=== PATIENT | male | born 1990 | race Caucasian/White ===

== ENCOUNTER 2020-06-24 17:19 | Observation (INO) | payer OTHER ==
[~2020-06-24] VITALS: Ht 172.7 cm; Wt 85.8 kg
[~2020-06-24 17:19] MED LIST: LISI2.5T PO; MONT10TA6 PO
[2020-06-24] MEDS ORDERED: SODIUM CHLORIDE FLUSH 10ML SYR IVF ONE (18:00)
[2020-06-24] MEDS ORDERED: ONDANSETRON 2MG/ML, 2ML IVPush ONE ×2 (18:00→22:30)
[2020-06-24] MEDS ORDERED: HYDROmorphone 2 MG/ML, 1ML IVPush PRN (18:00)
[2020-06-24] MEDS ORDERED: SODIUM CHLORIDE 0.9% 1,000ML IVBOLUS ONE ×3 (18:00→22:30)
[2020-06-24] MEDS ORDERED: HYDROmorphone 1 MG/ML, 1ML INJ ONE (18:17)
[2020-06-24] MEDS ORDERED: ONDANSETRON 2MG/ML, 2ML ONE ×2 (18:18→22:25)
[2020-06-24 18:19] LABS: MEAN CORPUSCULAR HEMOGLOBIN 32.2 pg (27.5-34.5); MEAN CORPUSCULAR HGB CONC 34.6 g/dL (33.2-36.2); MEAN PLATELET VOLUME 7.9 fL (7.4-10.4); PLATELET COUNT 293 x10^3/uL (130-400); RED BLOOD COUNT 6.06 x10^6/uL (4.38-5.82); RED CELL DISTRIBUTION WIDTH 12.6 % (9.4-14.8)
[2020-06-24 18:32] LABS: ALANINE AMINOTRANSFERASE 32 U/L (12-78); ALBUMIN 5.4 g/dL (3.4-5.0); ANION GAP 13 mmol/L (5-15); CALCIUM 10.2 mg/dL (8.5-10.1); CHLORIDE 102 mmol/L (98-107); CREATININE 1.39 mg/dL (0.7-1.3)
[2020-06-24 18:34] LABS: ALKALINE PHOSPHATASE 97 U/L (45-117); BILIRUBIN,TOTAL 1.9 mg/dL (0.2-1.0); TOTAL PROTEIN 9.1 g/dL (6.4-8.2)
--- NOTE | 2020-06-24 18:46 | NUR ---
IV PLACED, PT MEDICATED PER ERP ORDER FOR PAIN AND N/V. PT STATES DECREASE IN PAIN FROM 04/09 TO 3. PT LAST DRANK PEDIALYTE ALL DAY WITH LAST DRINK ON ARRIVAL TO ED. PT REPORTS N/V EVERY 15-60 MINUTES SINCE EARLY AM, VOMITING BILE THIS AFTERNOON. PT ALSO STATES TWO LOOSE STOOLS. REPORT TO DOUGLAS ANAYA, TRANSFER OF CARE AT THIS TIME. Addendum: 06/24/20 at 1910 by IRVING PINK SEPSIS SHEET STARTED, TWO CRITERIA IN SECTION B ONLY AT THIS TIME.
--- NOTE | 2020-06-24 18:48 | NUR ---
bedside report from Mariposa ANAYA, pt care transferred at this time.
[2020-06-24 18:52] LABS: MD YES
[2020-06-24 18:53] LABS: BANDS%(MANUAL) 1 % (0-7); LYMPH#(MANUAL) 0.89 x10^3/uL (1-3.4); LYMPHS% (MANUAL) 3 % (22-44); METAMYELOCYTES% (MANUAL) 1 % (0-1); MONOS#(MANUAL) 0.89 x10^3/uL (0.3-2.7); MONOS% (MANUAL) 3 % (2-9); SEG#(MANUAL) 27.32 x10^3/uL (1.8-6.8); SEGS% (MANUAL) 92 % (42-75)
[2020-06-24 18:54] LABS: <PLATELET ESTIMATE> ADEQUATE; <PLT MORPHOLOGY> NORMAL PLT MORPH; <RBC MORPHOLOGY> NORMAL
--- NOTE | 2020-06-24 19:00 | NUR ---
HYPERTENSION, OTHER VS, AND PAIN LEVEL REPORTED TO ABBY CONTRERAS.
[2020-06-24] MEDS ORDERED: ENALAPRILAT 1.25 MG/ML, 1ML ONE (19:14)
--- NOTE | 2020-06-24 19:22 | NUR ---
TASK RN: PT STS PAIN NOW 11/10, BP CONTINUES TO BE ELEVATED. EP UPDATED. PT MEDICATED. WILL CONTINUE TO MONITOR
--- NOTE | 2020-06-24 19:22 | NUR ---
TASK RN: ERP AT BEDSIDE FOR ASSESSMENT AND DISCUSS POC
[2020-06-24] MEDS ORDERED: ENALAPRILAT 1.25 MG/ML, 2ML IV ONE (19:30)
--- NOTE | 2020-06-24 19:32 | NUR ---
PT TO CT AT THIS TIME 2ND LITER STARTED, PT EDUCATED ON NEED FOR URINE SAMPLE
[2020-06-24] MEDS ORDERED: OMNIPAQUE 350 MG/ML, 100ML BOTTLE ONE (19:57)
--- NOTE | 2020-06-24 20:38 | NUR ---
PT AMBULATED TO RESTROOM WITH A SMOOTH AND STEADY GAIT. NAD, DENIES ADDITIONAL NEEDS AT THIS TIME. NO CHANGE IN CONDITION, WCTM. WAITING FOR PT TO GIVE UA
[2020-06-24 21:14] LABS: MICROSCOPIC NOT IND
--- NOTE | 2020-06-24 21:40 | NUR ---
LATE ENTRY D/T PT CARE: PT NAD, RESTING ON GURNEY, STILL TACHY ON MONITOR, WCTM.
[2020-06-24] MEDS ORDERED: LORazepam 2 MG/ML, 1ML IVPush ONE (22:30)
[2020-06-24] MEDS ORDERED: LORazepam 2 MG/ML, 1ML ONE (22:36)
--- NOTE | 2020-06-24 22:41 | NUR ---
RN DISCUSSED DC WITH PROVIDER. ERP STATES IT IS OKAY TO DC PT DESPITE WHITE COUNT. ERP PLACED ADDITIONAL ORDERS FOR HEART RATE. NAD, FCS no SOB, PT ATTEMPTING TO DRINK PO FLUIDS TO SEE IF HE CAN KEEP THINGS DOWN. WCTM.
--- NOTE | 2020-06-24 23:23 | NUR ---
Note mitzi in EDM - 06/24/20 at 2327 by CHARLINE Patien/Caregiver given discharge instructions and they have confirmed that they understand the instructions. Patient ambulatory with steady gait. ALL QUESTIONS ANSWERED APPRORPIATELY, NAD, SKIN WARM AND DRY, DENIES ADDITIONAL NEEDS, NO PT BELONINGS LEFT IN ROOM AFTER DC.
--- NOTE | 2020-06-24 23:26 | NUR ---
TASK RN: PT UP TO RESTROOM STEADY GAIT JOYCE
--- NOTE | 2020-06-24 23:27 | NUR ---
DC NOTE CHARTED ON WRONG PT.
[2020-06-24 23:55] LABS: AMPHETAMINE SCREEN, URINE Negative (Negative); BARBITURATE SCREEN, URINE Negative (Negative); BENZODIAZEPINE SCREEN, URINE Negative (Negative); CANNABINOID SCREEN, URINE Positive (Negative); METHADONE SCREEN, URINE Negative (Negative); OPIATE SCREEN, URINE Positive (Negative)
[2020-06-25] VITALS (7 sets, daily range): BP systolic 143–187; BP diastolic 88–113
[2020-06-25 00:05] LABS: COCAINE SCREEN, URINE Negative (Negative)
--- NOTE | 2020-06-25 00:07 | NUR ---
REPORT CALLED TO LIZZETH ANAYA, PT NAD, CONDITION UNCHANGED, CARE TO BE TRANSFERRED UPON ARRIVAL TO THE FLOOR. [facility] .
[2020-06-25] MEDS ORDERED: METOCLOPRAMIDE 5 MG/ML, 2ML IVPush ONE (00:30)
[2020-06-25] MEDS ORDERED: POLYETHYLENE GLYCOL 17 GM PACKET PO PRN (01:00)
[2020-06-25] MEDS ORDERED: morphine SULFATE 10 MG/ML, 1ML IVPush PRN (01:00)
[2020-06-25] MEDS ORDERED: PROMETHAZINE 25 MG/ML, 1ML IM PRN (01:00)
[2020-06-25] MEDS ORDERED: BISACODYL 10 MG SUPP PR PRN (01:00)
[2020-06-25] MEDS ORDERED: ONDANSETRON 2MG/ML, 2ML IVPush PRN (01:00)
[2020-06-25] MEDS ORDERED: ACETAMINOPHEN 325 MG TABLET PO PRN (01:00)
[2020-06-25] MEDS ORDERED: hydrALAzine 20 MG/ML, 1ML IVPush PRN (01:00)
[2020-06-25] MEDS ORDERED: OXYcodone IR 5MG TABLET PO PRN (01:00)
[2020-06-25] MEDS ORDERED: ONDANSETRON ODT 4 MG PO PRN (01:00)
[2020-06-25] MEDS: LABETALOL 5MG/ML, 20ML IVPush PRN ×3 (01:11→06:16)
[2020-06-25 01:33] LABS: FREE T4 (FREE THYROXINE) 1.3 ng/dL (0.76-1.46)
[2020-06-25] MEDS: SODIUM CHLORIDE 0.9% 1,000 ML IV SCH ×2 (01:50→11:00)
[2020-06-25 05:45] LABS: MEAN CORPUSCULAR HEMOGLOBIN 32.4 pg (27.5-34.5); MEAN CORPUSCULAR HGB CONC 34.4 g/dL (33.2-36.2); MEAN PLATELET VOLUME 8.2 fL (7.4-10.4); PLATELET COUNT 248 x10^3/uL (130-400); RED BLOOD COUNT 5.07 x10^6/uL (4.38-5.82); RED CELL DISTRIBUTION WIDTH 12.8 % (9.4-14.8)
[2020-06-25 05:50] LABS: ANION GAP 6 mmol/L (5-15); CALCIUM 8.7 mg/dL (8.5-10.1); CHLORIDE 108 mmol/L (98-107)
[2020-06-25 05:53] LABS: ALANINE AMINOTRANSFERASE 26 U/L (12-78); ALKALINE PHOSPHATASE 73 U/L (45-117); BILIRUBIN,TOTAL 1.5 mg/dL (0.2-1.0); CHOL/HDL RATIO 4.5; CHOLESTEROL, TOTAL 170 mg/dL (140-239); CREATININE 0.89 mg/dL (0.7-1.3); HDL CHOL % 22 % (26-37); HDL CHOLESTEROL (DIRECT) 38 mg/dL (40-60); LDL CHOLESTEROL,CALCULATED 102 mg/dL (54-169); LDL/HDL RATIO 2.7 (0.5-3.0); TOTAL PROTEIN 6.9 g/dL (6.4-8.2); TRIGLYCERIDES 149 mg/dL (50-200); VLDL CHOLESTEROL 30 mg/dL (0-25)
[2020-06-25 06:07] LABS: BASOPHILS % (AUTO) 0 % (0-1); EOSINOPHILS # (AUTO) 0.02 x10^3/uL (0-0.4); EOSINOPHILS % (AUTO) 0 % (1-7); LYMPHOCYTES # (AUTO) 2.16 x10^3/uL (1-3.4); LYMPHOCYTES % (AUTO) 10 % (22-44); MD SCAN; MONOCYTES # (AUTO) 1.67 x10^3/uL (0.2-0.8); MONOCYTES % (AUTO) 8 % (2-9); NEUTROPHILS # (AUTO) 17.63 x10^3/uL (1.8-6.8); NEUTROPHILS % (AUTO) 82 % (42-75)
[2020-06-25] MEDS: LISINOPRIL 5 MG TABLET PO SCH ×2 (08:38→20:43)
[2020-06-25] MEDS: METOPROLOL TARTRATE 25 MG TAB PO SCH ×2 (08:38→17:20)
[2020-06-25] MEDS: SENNA/DOCUSATE TABLET PO SCH (08:39)
[2020-06-25] MEDS ORDERED: POTASSIUM CHLORIDE 20 MEQ TAB.ER.PRT PO ONE (09:00)
[2020-06-25 09:23] LABS: CLOSTRIDIUM DIFFICILE ANTIGEN NEGATIVE; CLOSTRIDIUM DIFFICILE TOXIN NEGATIVE (Negative)
[2020-06-25] MEDS ORDERED: CARVEDILOL 3.125 MG TABLET PO SCH (18:30)
[2020-06-26] MEDS ORDERED: TEMAZEPAM 15 MG CAPSULE PO PRN
[2020-06-26 00:04] VITALS: BP 171/100
[2020-06-26] MEDS: LABETALOL 5MG/ML, 20ML IVPush PRN (00:29)
[2020-06-26 01:45] VITALS: BP 162/98
[2020-06-26 04:58] LABS: BASOPHILS # (AUTO) 0.06 x10^3/uL (0-0.1); BASOPHILS % (AUTO) 1 % (0-1); EOSINOPHILS # (AUTO) 0.06 x10^3/uL (0-0.4); EOSINOPHILS % (AUTO) 1 % (1-7); LYMPHOCYTES # (AUTO) 3.48 x10^3/uL (1-3.4); LYMPHOCYTES % (AUTO) 29 % (22-44); MD NO; MEAN CORPUSCULAR HEMOGLOBIN 32.2 pg (27.5-34.5); MEAN CORPUSCULAR HGB CONC 34.5 g/dL (33.2-36.2); MONOCYTES # (AUTO) 0.97 x10^3/uL (0.2-0.8); MONOCYTES % (AUTO) 8 % (2-9); NEUTROPHILS # (AUTO) 7.65 x10^3/uL (1.8-6.8); NEUTROPHILS % (AUTO) 63 % (42-75); PLATELET COUNT 219 x10^3/uL (130-400); RED BLOOD COUNT 4.93 x10^6/uL (4.38-5.82); RED CELL DISTRIBUTION WIDTH 12.3 % (9.4-14.8)
[2020-06-26 05:08] LABS: CHLORIDE 107 mmol/L (98-107)
[2020-06-26 05:16] LABS: ALANINE AMINOTRANSFERASE 26 U/L (12-78); ALBUMIN 4.1 g/dL (3.4-5.0); ALKALINE PHOSPHATASE 62 U/L (45-117); ANION GAP 8 mmol/L (5-15); BILIRUBIN,TOTAL 1.5 mg/dL (0.2-1.0); TOTAL PROTEIN 6.9 g/dL (6.4-8.2)
[2020-06-26] MEDS: METOPROLOL TARTRATE 25 MG TAB PO SCH (05:52)
[2020-06-26 05:53] VITALS: BP 150/91
[2020-06-26 07:24] VITALS: BP 157/107
[2020-06-26] MEDS: LISINOPRIL 5 MG TABLET PO SCH (08:21)
[2020-06-26] MEDS: SENNA/DOCUSATE TABLET PO SCH (08:21)
[2020-06-26] MEDS ORDERED: SPIRONOLACTONE 25 MG TABLET PO SCH (09:00)
[2020-06-26] MEDS ORDERED: TRAZODONE 50MG TABLET PO PRN (09:30)
[2020-06-26] MEDS ORDERED: METO25TA35 PO (11:54)
[2020-06-26] MEDS ORDERED: LISI-170 PO (11:54)
[2020-06-26 12:34] VITALS: BP 167/114
[2020-06-26] MEDS ORDERED: CLON0.1T22 PO (16:30)
[2020-06-26] MEDS ORDERED: LISINOPRIL 20 MG TABLET PO SCH (21:00)
== END 2020-06-26 14:20 | disposition home or self-care (01) ==
LOC: ED 17:56 → EDIP 23:36 → INTOOBSV 23:36 → 5SO 06-25 00:20 → DCLOUNGE 06-26 14:10
PROVIDERS: ADMIT Internal Medicine; ATTEND Internal Medicine
DX: I16.0 Hypertensive urgency (principal); Z20.828 Contact with and (suspected) exposure to other viral communicable diseases; R11.2 Nausea with vomiting, unspecified; E86.0 Dehydration; E87.6 Hypokalemia; I10 Essential (primary) hypertension; J45.909 Unspecified asthma, uncomplicated; D72.829 Elevated white blood cell count, unspecified; N17.0 Acute kidney failure with tubular necrosis; F12.10 Cannabis abuse, uncomplicated; D18.03 Hemangioma of intra-abdominal structures
CPT/HCPCS: 36415; 71045; 74177; 76700; 80053; 80061; 80307; 81003; 83036; 83690; 83735; 84439; 84443; 85025; 87324; 87635; 93005; 93306; 96361; 96374; 96375; 96376; 99291; G0378; J1170; J2060; J2405; J2765; J7030; Q9967

== ENCOUNTER → 2020-08-11 | Outpatient (CLI) | payer OTHER ==
[~2020-08-11] MED LIST changes: +CLON0.1T22 PO; +LISI-170 PO; +METO25TA35 PO
== END | disposition home or self-care (01) ==
LOC: CFH 07:09
PROVIDERS: ATTEND Internal Medicine Cardiovascular Disease
DX: N28.0 Ischemia and infarction of kidney (principal)
CPT/HCPCS: 93975